=== PATIENT | female | born 1935 | race Caucasian/White ===

== ENCOUNTER 2017-07-23 09:27 | Outpatient (CLI) | payer MEDICARE, OTHER ==
--- NOTE | 2017-07-23 14:52 | CT Report ---
SINUS CT: 07/23/2017 HISTORY: Nasal congestion. TECHNIQUE: Axial noncontrast images of the paranasal sinuses with sagittal and coronal reconstructio ns. COMPARISON: Head CT 04/22/2015. FINDINGS: The frontal and ethmoid sinuses are clear. There is trace membrane thickening in the left sphenoid sinus and bilateral maxillary sinuses. The right sphenoid sinus is clear. The nasal cavit y is unremarkable with an essentially midline nasal septum. The orbital structures are symmetric. N o bone destruction or fracture. IMPRESSION: TRACE MEMBRANE THICKENING BILATERAL MAXILLARY AND LEFT SPHENOID SINUS. OTHERWISE NEGATI VE. In accordance with CT protocol optimization, one or more of the following dose reduction techniques w ere utilized for this exam: automated exposure control, adjustment of mA and/or KV based on patient size, or use of iterative reconstructive technique. JOB #: [id number] EXT JOB #:[id number]
== END 2017-07-23 09:28 | disposition home or self-care (01) ==
LOC: DI 09:27
PROVIDERS: ATTEND Otolaryngology
DX: J32.8 Other chronic sinusitis (principal); J31.0 Chronic rhinitis; R09.81 Nasal congestion
CPT/HCPCS: 70486

== ENCOUNTER 2017-11-29 15:15 | Outpatient (CLI) | payer MEDICARE, OTHER ==
[2017-11-29 15:49] LABS: BASOPHILS # (AUTO) 0.1 10^3/uL (0.0-0.1); BASOPHILS % (AUTO) 1.3 %; EOSINOPHILS # (AUTO) 0.1 10^3/uL (0.0-0.7); EOSINOPHILS % (AUTO) 1.5 %; HGB - HEMOGLOBIN 13.6 g/dL (12.0-16.0); LYMPHOCYTES # (AUTO) 2.2 10^3/uL (1.5-3.5); LYMPHOCYTES % (AUTO) 33.6 %; MEAN CORPUSCULAR HEMOGLOBIN 32.6 pg (27.0-31.0); MEAN CORPUSCULAR VOLUME 96.1 fL (81.0-99.0); MEAN PLATELET VOLUME 8.3 fL (7.9-10.8); MONOCYTES # (AUTO) 0.8 10^3/uL (0.0-1.0); MONOCYTES % (AUTO) 12.6 %; NEUTROPHILS # (AUTO) 3.3 10^3/uL (1.5-6.6); PLT - PLATELET COUNT 253 10^3/uL (130-450); RED BLOOD COUNT 4.18 10^6/uL (4.20-5.40); RED CELL DISTRIBUTION WIDTH 13.8 % (12.0-15.0); WHITE BLOOD COUNT 6.5 x10^3/uL (4.8-10.8)
[2017-11-29 16:02] LABS: ALBUMIN 4.5 g/dL (3.2-5.5); ALBUMIN/GLOBULIN RATIO 1.6 (1.0-2.2); BILIRUBIN,TOTAL 0.8 mg/dL (0.2-1.0); CALCIUM 9.3 mg/dL (8.5-10.3); CREATININE 0.6 mg/dL (0.4-1.0); TOTAL PROTEIN 7.4 g/dL (6.7-8.2)
[2017-11-29 17:07] LABS: HB2 TOTAL 14.9 g/dL; HEMOGLOBIN A1C 0.46 g/dL
== END 2017-11-29 15:16 | disposition home or self-care (01) ==
LOC: LAB 15:15
PROVIDERS: ATTEND Internal Medicine
DX: Z01.812 Encounter for preprocedural laboratory examination (principal); M25.569 Pain in unspecified knee; I10 Essential (primary) hypertension; E78.5 Hyperlipidemia, unspecified; R73.01 Impaired fasting glucose; Z79.899 Other long term (current) drug therapy
CPT/HCPCS: 36415; 80053; 83036; 85025; 87640

== ENCOUNTER 2018-06-30 14:00 | Outpatient (CLI) | payer MEDICARE, OTHER ==
[2018-06-30] MEDS ORDERED: IOPAMIDOL-300 100 ML VIAL ONE (14:05)
[2018-06-30 14:31] LABS: BASOPHILS # (AUTO) 0.1 10^3/uL (0.0-0.1); EOSINOPHILS # (AUTO) 0.1 10^3/uL (0.0-0.7); EOSINOPHILS % (AUTO) 0.9 %; HGB - HEMOGLOBIN 13.2 g/dL (12.0-16.0); LYMPHOCYTES # (AUTO) 1.3 10^3/uL (1.5-3.5); LYMPHOCYTES % (AUTO) 21.3 %; MEAN CORPUSCULAR HEMOGLOBIN 33.1 pg (27.0-31.0); MEAN CORPUSCULAR HGB CONC 33.5 g/dL (32.0-36.0); MEAN CORPUSCULAR VOLUME 98.6 fL (81.0-99.0); MEAN PLATELET VOLUME 8.3 fL (7.9-10.8); MONOCYTES # (AUTO) 0.7 10^3/uL (0.0-1.0); MONOCYTES % (AUTO) 11.4 %; NEUTROPHILS % (AUTO) 65.4 %; PLT - PLATELET COUNT 275 10^3/uL (130-450); RED BLOOD COUNT 3.99 10^6/uL (4.20-5.40); RED CELL DISTRIBUTION WIDTH 14.9 % (12.0-15.0); WHITE BLOOD COUNT 6.1 x10^3/uL (4.8-10.8)
[2018-06-30 14:39] LABS: CALCIUM 9.4 mg/dL (8.5-10.3); CREATININE 0.7 mg/dL (0.4-1.0)
[2018-06-30] MEDS ORDERED: IOPAMIDOL-300 100 ML VIAL IVP ONE (15:19)
--- NOTE | 2018-06-30 15:44 | CT Report ---
Reason: DYSPNEA Procedure Date: 06/30/2018 Accession Number: [id number] / [id number] Procedure: CT - Chest Angio (PE) CPT Code: FULL RESULT: EXAM: CT ANGIOGRAM CHEST EXAM DATE: 06/30/2018 03:17 PM. CLINICAL HISTORY: Dyspnea. COMPARISON: None. TECHNIQUE: Routine helical imaging was performed through the chest in the pulmonary arterial phase. IV Contrast: ISOVUE 300 80mL. Reconstructions: Coronal 3-D MIP reconstructions.Sagittal and coronal. In accordance with CT protocol optimization, one or more of the following dose reduction techniques were utilized for this exam: automated exposure control, adjustment of mA and/or KV based on patient size, or use of iterative reconstructive technique. FINDINGS: Mediastinum: No evidence for pulmonary emboli. Mild breathing motion artifact limited. 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 Aneurysmal dilatation of the ascending thoracic aorta measuring 4.1 cm. Cardiomegaly. Coronary artery calcification. No mediastinal or hilar lymphadenopathy seen. There is reflux of contrast into the hepatic veins. No acute findings are seen in the upper abdomen. Small hiatal hernia. Lungs: Moderate right and small left pleural effusions. Small to moderate bilateral lower lobe lung consolidations, left greater than right. Small left upper lobe lingular consolidation. Mild diffuse hazy opacifications in the lungs, could represent mild pulmonary edema. Areas of mild interlobular septal thickening. Mild breathing motion artifact limited. No acute bone findings. IMPRESSION: 1. No evidence for pulmonary emboli. Mild motion artifact limited. 2. 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 Aneurysmal dilatation of the ascending thoracic aorta measuring 4.1 cm. Cardiomegaly. See above. 3. Moderate right and small left pleural effusions. Small to moderate bilateral lower lobe lung consolidations, left greater than right. Small left upper lobe lingular consolidation. Mild diffuse hazy opacifications in the lungs, could represent mild pulmonary edema. Areas of mild interlobular septal thickening. Mild breathing motion artifact limited. RADIA
== END 2018-06-30 14:01 | disposition home or self-care (01) ==
LOC: DI 14:00
PROVIDERS: ATTEND Internal Medicine
DX: I50.9 Heart failure, unspecified (principal); J90 Pleural effusion, not elsewhere classified; I71.4 Abdominal aortic aneurysm, without rupture; Z79.899 Other long term (current) drug therapy
CPT/HCPCS: 36415; 71275; 80048; 83880; 84443; 85025; Q9967

== ENCOUNTER 2018-07-04 11:11 | Outpatient (CLI) | payer MEDICARE, OTHER | END 2018-07-04 11:12 | disposition home or self-care (01) | LOC: DI 11:11 | PROVIDERS: ATTEND Internal Medicine | DX: I50.9 Heart failure, unspecified (principal); I07.1 Rheumatic tricuspid insufficiency ==

== ENCOUNTER 2018-08-08 01:10 | Emergency (ER) | payer MEDICARE, OTHER ==
[2018-08-08 01:38] LABS: BASOPHILS # (AUTO) 0.1 10^3/uL (0.0-0.1); BASOPHILS % (AUTO) 1.2 %; EOSINOPHILS # (AUTO) 0.1 10^3/uL (0.0-0.7); EOSINOPHILS % (AUTO) 1.7 %; HGB - HEMOGLOBIN 14.7 g/dL (12.0-16.0); LYMPHOCYTES # (AUTO) 2.6 10^3/uL (1.5-3.5); LYMPHOCYTES % (AUTO) 33.9 %; MEAN CORPUSCULAR HEMOGLOBIN 32.6 pg (27.0-31.0); MEAN CORPUSCULAR HGB CONC 33.7 g/dL (32.0-36.0); MEAN CORPUSCULAR VOLUME 96.9 fL (81.0-99.0); MONOCYTES # (AUTO) 0.8 10^3/uL (0.0-1.0); MONOCYTES % (AUTO) 11.1 %; NEUTROPHILS % (AUTO) 52.1 %; PLT - PLATELET COUNT 303 10^3/uL (130-450); RED BLOOD COUNT 4.51 10^6/uL (4.20-5.40); RED CELL DISTRIBUTION WIDTH 13.9 % (12.0-15.0); WHITE BLOOD COUNT 7.7 x10^3/uL (4.8-10.8)
[2018-08-08] MEDS ORDERED: FUROSEMIDE 40 MG/4 ML VIAL IVP STA (01:38)
[2018-08-08] MEDS ORDERED: NITROGLYCERIN 2% PASTE TOP STA ×2 (01:40→03:45)
--- NOTE | 2018-08-08 01:43 | XRAY Report ---
Reason: short of breath Procedure Date: 08/08/2018 Accession Number: [id number] / [id number] Procedure: XR - Chest 1 View X-Ray CPT Code: 41221 FULL RESULT: EXAM: CHEST RADIOGRAPHY EXAM DATE: 08/08/2018 01:22 AM. CLINICAL HISTORY: Short of breath. COMPARISON: CHEST ANGIO 06/30/2018 3:12 PM. TECHNIQUE: 1 view. FINDINGS: Lungs/Pleura: Diffuse mild interstitial opacities. Small effusions. No gross pneumothorax. Mediastinum: Mild cardiomegaly. No mediastinal shift. Other: None. IMPRESSION: Mild CHF. RADIA
[2018-08-08 01:47] LABS: ALBUMIN 4.2 g/dL (3.2-5.5); ALBUMIN/GLOBULIN RATIO 1.3 (1.0-2.2); BILIRUBIN,TOTAL 1.1 mg/dL (0.2-1.0); CALCIUM 9.2 mg/dL (8.5-10.3); CREATININE 0.8 mg/dL (0.4-1.0); MAGNESIUM 2.1 mg/dL (1.7-2.8); TOTAL PROTEIN 7.5 g/dL (6.7-8.2)
--- NOTE | 2018-08-08 01:55 | ED Physician Documentation ---
PD HPI DYSPNEA - Stated complaint Stated Complaint: DIFF BREATHING,CHEST PX - Chief complaint Chief Complaint: Cardiac - History obtained from History obtained from: Patient, Family - History of Present Illness Timing - onset: Today, Chronic Timing - onset during: Rest, Light activity, Exertion Worsened by: Exertion, Laying flat Associated symptoms: No: Fever, Cough Similar symptoms before: Work up / diagnostics, Treatment Recently seen: Clinic - Additional information Additional information: Patient is 83 year old female who was recently diagnosed with chf, ef about 35- 40 percent. Patient has had worsening shortness of breath over the last two weeks. patient saw her pmd who increased her diuretic dose. Patient states that she had been on metoprolol but recently lessened her dose due to hypotension. Patient states that tonight she was having her continual shortness of breath but also developed chest pain. Review of Systems Constitutional: denies: Fever, Chills Throat: denies: Dental pain / toothache Cardiac: reports: Chest pain / pressure, Pedal edema. denies: Palpitations Respiratory: reports: Dyspnea. denies: Wheezing GI: reports: Nausea. 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 Musculoskeletal: Osteoarthritis - Past Surgical History Past Surgical History: Yes General: Appendectomy /EXPERIMENTAL MECHANIC SPACECRAFT: section - Present Medications Home Medications: Ambulatory Orders Medication Instructions Recorded Confirmed Furosemide [Lasix] 10 mg PO DAILY 08/08/18 - Allergies Allergies/Adverse Reactions: Allergies Allergy/AdvReac Type Severity Reaction Status Date / Time No Known Drug Allergies Allergy Verified 08/08/18 01:20 - Social History Does the pt smoke?: No Smoking Status: Never smoker Does the pt drink ETOH?: Yes ETOH Use: Wine Does the pt have substance abuse?: No - Immunizations Immunizations are current?: No Immunizations: TDAP >10years/unknown - POLST Patient has POLST: No PD ED PE NORMAL - Vitals Vital signs reviewed: Yes - General General: Alert and oriented X 3 - HEENT HEENT: Atraumatic, PERRL - Abdomen Abdomen: Soft - Derm Derm: Normal color PD ED PE EXPANDED - General General: Alert - Cardiac Cardiac: Irregularly irregular - Respiratory Respiratory: Labored, Accessory mm use, Decreased breath sounds, Right lower lobe, Left lower lobe - Extremities Extremities: Pedal edema bilateral (plus 1, right greater than left) Results - Vitals Vitals: Vital Signs - 24 hr 08/08/18 08/08/18 08/08/18 01:14 01:22 01:47 Temperature 36.1 C L Heart Rate 111 H 92 Respiratory 20 22 Rate Blood Pressure 130/100 H 132/74 H Blood Pressure 139/103 H [Left] Blood Pressure 132/74 H [Right] O2 Saturation 97 92 Oxygen O2 Source Nasal cannula - EKG (time done) 0116 Rhythm: NSR [place]: Normal, Anterior hemiblock Intervals: LBBB Other comments: Other comments (irregular morphology with pvcs) Compare to prior EKG: Old EKG unavailable Computer interpretation: Disagree with computer 0210 Rate: Rate (enter#) (98) Rhythm: NSR [place]: Normal Intervals: LBBB Compare to prior EKG: Changed from prior EKG Computer interpretation: Agree with computer - Labs Labs: Laboratory Tests 08/08/18 08/08/18 08/08/18 01:25 01:25 01:25 WBC 7.7 RBC 4.51 Hgb 14.7 Hct 43.7 MCV 96.9 MCH 32.6 H MCHC 33.7 RDW 13.9 Plt Count 303 MPV 9.0 Neut # (Auto) 4.0 Lymph # (Auto) 2.6 [place] # (Auto) 0.8 Eos # (Auto) 0.1 Baso # (Auto) 0.1 Absolute Nucleated RBC 0.00 Nucleated RBC % 0.1 Sodium 139 Potassium 3.3 L Chloride 101 Carbon Dioxide 27 Anion Gap 11.0 BUN 25 H Creatinine 0.8 Estimated GFR (MDRD) 69 L Glucose 166 H Calcium 9.2 Phosphorus 4.0 Magnesium 2.1 Total Bilirubin 1.1 H AST 41 ALT 61 H Alkaline Phosphatase 86 Troponin I 0.22 Total Protein 7.5 Albumin 4.2 Globulin 3.3 Albumin/Globulin Ratio 1.3 Lipase 29 - Rads (name of study) chest x-ray Radiology: Final report received (mild chf patter) PD MEDICAL DECISION MAKING - ED course Complexity details: reviewed old records, reviewed results, re-evaluated patient, considered differential, d/w patient, d/w diet consultant ED course: Patient was seen and examined at bedside. IV access was gained and labs were drawn. ekg was performed and it seemed to be sinus with multiple pvcs, but it was abnormal morphology. there was no ekg for comparison. chest x-ray was ordered and patient was treated with nitro and 40mg of lasix. Patient's htn improved as did her symptoms. While patient was on the monitor she had multiple runs of unsustained v-tach and patient developed chest pain. patient was treated with aspirin. Repeat troponin was trending down 0.22 to 0.19. Case was discussed with patient's coke oven mason, Dr. Peter who recommended metoprolol and stated that the patient needed to be diuresed. Case was discussed with the hospitalist but while patient was being evaluated patient developed increased chest pain. A third troponin was performed and was increasing to 0.3 as was her pain. patient was treated with morphine. There were no beds at [facility], home of the patient's coke oven mason so [facility] was contacted and the case was discussed with Dr. Choi, coke oven mason who recommended IV metoprolol and transfer. Case was discussed with [facility] hospitalist, Dr. Christian who accepted the patient. Arrangements were made for transfer and patient was tra nsferred in stable condition. - Sepsis Event Vital Signs: Vital Signs - 24 hr 08/08/18 08/08/18 08/08/18 01:14 01:22 01:47 Temperature 36.1 C L Heart Rate 111 H 92 Respiratory 20 22 Rate Blood Pressure 130/100 H 132/74 H Blood Pressure 139/103 H [Left] Blood Pressure 132/74 H [Right] O2 Saturation 97 92 Oxygen O2 Source Nasal cannula Departure - Departure Disposition: 02 Transfer Acute Care Hosp Clinical Impression: Congestive heart failure Condition: Stable
[2018-08-08] MEDS ORDERED: ASPIRIN CHEW 81 MG TABLET PO STA (02:01)
[2018-08-08] MEDS ORDERED: ONDANSETRON 4 MG/2 ML VIAL IVP STA (02:07)
[2018-08-08] MEDS ORDERED: METOPROLOL TARTRATE 50 MG TABLET PO STA (03:17)
[2018-08-08] MEDS ORDERED: ACETAMINOPHEN 500 MG TABLET PO STA (04:15)
[2018-08-08] MEDS ORDERED: MORPHINE 2 MG/ML CARPUJECT IVP STA (04:16)
[2018-08-08] MEDS ORDERED: METOPROLOL 5 MG/5 ML VIAL IVP STA (05:15)
[2018-08-08 05:51] VITALS: BP 115/78
== END 2018-08-08 06:15 | disposition short-term general hospital (02) ==
LOC: ED 01:10
DX: I44.7 Left bundle-branch block, unspecified (principal); I50.9 Heart failure, unspecified; I49.3 Ventricular premature depolarization
CPT/HCPCS: 71045; 80053; 83690; 83735; 83880; 84100; 84484; 85025; 93005; 96374; 96375; 99284; 99285; A9270; 36415

== ENCOUNTER 2018-08-08 06:13 | Outpatient (CLI) | payer MEDICARE, OTHER | END 2018-08-08 06:14 | disposition short-term general hospital (02) | LOC: EMS 06:13 | PROVIDERS: ATTEND Surgery | DX: R07.9 Chest pain, unspecified (principal); R06.02 Shortness of breath | CPT/HCPCS: A0425; A0428 ==

== ENCOUNTER 2018-12-23 08:47 | Outpatient (CLI) | payer MEDICARE, OTHER ==
[2018-12-23 09:02] LABS: BASOPHILS # (AUTO) 0.1 10^3/uL (0.0-0.1); BASOPHILS % (AUTO) 0.9 %; EOSINOPHILS # (AUTO) 0.2 10^3/uL (0.0-0.7); EOSINOPHILS % (AUTO) 2.9 %; HGB - HEMOGLOBIN 12.9 g/dL (12.0-16.0); LYMPHOCYTES # (AUTO) 2.3 10^3/uL (1.5-3.5); LYMPHOCYTES % (AUTO) 39.7 %; MEAN CORPUSCULAR HEMOGLOBIN 33.1 pg (27.0-31.0); MEAN CORPUSCULAR HGB CONC 33.9 g/dL (32.0-36.0); MEAN CORPUSCULAR VOLUME 97.6 fL (81.0-99.0); MEAN PLATELET VOLUME 7.9 fL (7.9-10.8); MONOCYTES # (AUTO) 0.8 10^3/uL (0.0-1.0); MONOCYTES % (AUTO) 13.4 %; NEUTROPHILS # (AUTO) 2.5 10^3/uL (1.5-6.6); NEUTROPHILS % (AUTO) 43.1 %; PLT - PLATELET COUNT 290 10^3/uL (130-450); RED BLOOD COUNT 3.89 10^6/uL (4.20-5.40); RED CELL DISTRIBUTION WIDTH 13.6 % (12.0-15.0); WHITE BLOOD COUNT 5.7 x10^3/uL (4.8-10.8)
[2018-12-23 09:21] LABS: BUN - BLOOD UREA NITROGEN 24 mg/dL (6-20); CALCIUM 9.1 mg/dL (8.5-10.3); CARBON DIOXIDE - CO2 27 mmol/L (21-32); CHLORIDE 97 mmol/L (101-111); CHOL/HDL RATIO 3.3 (<4.4); CHOLESTEROL 223 mg/dL; CREATININE 0.8 mg/dL (0.4-1.0); GFR - MDRD 69 (>89); GLUCOSE 100 mg/dL (70-100); HDL CHOLESTEROL 67 mg/dL; LDL CHOLESTEROL,CALCULATED 141 mg/dL; LDL/HDL RATIO 2.1 (<4.4); SODIUM 133 mmol/L (135-145); VLDL CHOLESTEROL 15 mg/dL
== END 2018-12-23 08:48 | disposition home or self-care (01) ==
LOC: LAB 08:47
PROVIDERS: ATTEND Internal Medicine Cardiovascular Disease
DX: I10 Essential (primary) hypertension (principal); E78.5 Hyperlipidemia, unspecified
CPT/HCPCS: 36415; 80048; 80061; 83721; 85025

== ENCOUNTER 2019-11-10 13:49 | Outpatient (CLI) | payer MEDICARE, OTHER ==
--- NOTE | 2019-11-11 09:54 | DEXA Report ---
Reason: POSTMENOPAUSAL Procedure Date: 11/10/2019 Accession Number: [id number] / [id number] Procedure: DEX - Dexa Spine and/or Hip CPT Code: Final Report FULL RESULT: EXAM: Dexa Spine and/or Hip DATE: 11/10/2019 2:41 PM CLINICAL HISTORY: POSTMENOPAUSAL TECHNIQUE: Dual energy x-ray absorptiometry (DXA) was performed on a OmniGuide System. Regions measured are the AP Spine, femoral neck, and if needed forearm. COMPARISON: None. In accordance with the International Society for Clinical Densitometry (ISCD) guidelines, data from previous exams may be reanalyzed using current recommendations and techniques. This is done to allow a more accurate basis for comparison with the current study. FINDINGS: The data for the lumbar spine is as follows: BMD (g/cm/cm) T-SCORE Z-SCORE REGION L1 0.934 -1.6 0.1 L2 1.151 -0.4 1.3 L3 1.224 0.2 2.0 L4 1.148 -0.4 1.3 TOTAL 1.122 -0.5 1.3 NOTE: All evaluable vertebrae are used for classification The data for the hip is as follows: BMD (g/cm/cm) T-SCORE Z-SCORE REGION Neck 0.630 -2.9 -0.8 TOTAL 0.573 -3.4 -1.4 NOTE: The femoral neck or total proximal femur, whichever is lowest, is used for classification. IMPRESSION: THE WHO CLASSIFICATION BASED ON THE INTERNATIONAL REFERENCE STANDARD IS OSTEOPOROSIS. THE FRACTURE RISK IS HIGH. RECOMMENDATION: Patients with diagnosis of osteoporosis or osteopenia should have regular bone mineral density assessment. For those eligible for Medicare, routine testing is allowed once every 2 years. Testing frequency can be increased for patients who have rapidly progressing disease or for those who are receiving medical therapy to restore bone mass. COMMENT: World Health Organization (WHO) definitions for osteoporosis and osteopenia: NORMAL BMD: T-score at -1.0 or higher, fracture risk is low OSTEOPENIA BMD: T-score between -1.0 and -2.5, fracture risk is increased. OSTEOPOROSIS BMD: T-score at -2.5 or lower, fracture risk is high. National Osteoporosis Foundation recommends: 1. Obtain adequate dietary calcium (at least 1200 mg per day) and vitamin D (400-800 international units per day). 2. Participate, as appropriate, in regular weightbearing and muscle-strengthening exercise. 3. Avoid tobacco use and reduce alcohol and caffeine intake. 4. For more detailed information see the website at www.NOF.org.
== END 2019-11-10 13:50 | disposition home or self-care (01) ==
LOC: DI 13:49
PROVIDERS: ATTEND Internal Medicine
DX: Z13.820 Encounter for screening for osteoporosis (principal); M81.0 Age-related osteoporosis without current pathological fracture; Z78.0 Asymptomatic menopausal state
CPT/HCPCS: 77080

== ENCOUNTER 2019-11-16 10:09 | Outpatient (CLI) | payer MEDICARE, OTHER ==
[2019-11-16 10:40] LABS: BASOPHILS # (AUTO) 0.1 10^3/uL (0.0-0.1); BASOPHILS % (AUTO) 1.1 %; EOSINOPHILS # (AUTO) 0.1 10^3/uL (0.0-0.7); EOSINOPHILS % (AUTO) 2.4 %; LYMPHOCYTES % (AUTO) 18.5 %; MEAN CORPUSCULAR HEMOGLOBIN 32.3 pg (27.0-31.0); MEAN CORPUSCULAR HGB CONC 32.3 g/dL (32.0-36.0); MEAN PLATELET VOLUME 9.9 fL (7.9-10.8); MONOCYTES # (AUTO) 0.9 10^3/uL (0.0-1.0); MONOCYTES % (AUTO) 17.1 %; NEUTROPHILS # (AUTO) 3.3 10^3/uL (1.5-6.6); NEUTROPHILS % (AUTO) 60.7 %; PLT - PLATELET COUNT 329 10^3/uL (130-450); RED BLOOD COUNT 4.03 10^6/uL (4.20-5.40); RED CELL DISTRIBUTION WIDTH 14.4 % (12.0-15.0); WHITE BLOOD COUNT 5.5 x10^3/uL (4.8-10.8)
[2019-11-16 11:04] LABS: CHOL/HDL RATIO 2.7 (<4.4); CHOLESTEROL 187 mg/dL; HDL CHOLESTEROL 70 mg/dL; LDL CHOLESTEROL,CALCULATED 97 mg/dL; LDL/HDL RATIO 1.4 (<4.4); VLDL CHOLESTEROL 20 mg/dL
== END 2019-11-16 10:10 | disposition home or self-care (01) ==
LOC: LAB 10:09
PROVIDERS: ATTEND Internal Medicine Cardiovascular Disease
DX: E78.5 Hyperlipidemia, unspecified (principal); I50.22 Chronic systolic (congestive) heart failure
CPT/HCPCS: 36415; 80061; 83721; 85025

== ENCOUNTER 2019-11-20 06:13 | Emergency (ER) | payer MEDICARE, OTHER ==
[2019-11-20] MEDS ORDERED: IPRATROPIUM/ALBUTEROL 3 ML NEB INH STA (06:44)
[2019-11-20] MEDS ORDERED: CHERRY SYRUP 10 ML UDC PO ONE (07:35)
[2019-11-20] MEDS ORDERED: DEXAMETHASONE 10 MG/ML VIAL PO STA (07:35)
--- NOTE | 2019-11-20 07:39 | ED Physician Documentation ---
PD HPI URI - Stated complaint Stated Complaint: COUGH/SOA - Chief complaint Chief Complaint: Resp - History obtained from History obtained from: Patient, Family - History of Present Illness Timing - onset: How many days ago (5) Timing duration: Days (5) Timing details: Gradual onset, Still present Associated symptoms: Nasal congestion, Rhinorrhea, Dry cough. No: Fever, Sore throat Contributing factors: Sick contact ( sick with similar has improved) Improves by: Rest, Medication Worsened by: Activity Similar symptoms before: Diagnosis (bronchitis/ CHF) Recently seen: Surgery (total knee 2 months ago.) - Additional information Additional information: 84-year-old female with a history of congestive heart failure has had knee replacement done 2 months ago and is improving from that and she has developed a cough and congestion over the past 5 days she does have some nasal quality to her voice. She states that she does not feel like she is in congestive heart failure and she has been given a DuoNeb treatment prior to my arrival in the room which she states did not really help all that much. She denies any swelling to her lower extremities denies any fever denies any production of sputum. She has been in to see her primary care doctor within the last 2 weeks and follow-up from her knee surgery. Review of Systems Constitutional: denies: Fever Eyes: denies: Decreased vision Ears: denies: Ear pain Nose: reports: Rhinorrhea / runny nose, Congestion. denies: Sinus pressure / pain Throat: denies: Sore throat Cardiac: denies: Chest pain / pressure, Palpitations Respiratory: reports: Cough. 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 Musculoskeletal: Osteoarthritis - Past Surgical History Past Surgical History: Yes General: Appendectomy Ortho: Knee replacement /ENTRY ENGINEER: section - Present Medications Home Medications: Ambulatory Orders Medication Instructions Recorded Confirmed Furosemide [Lasix] 10 mg PO DAILY 08/08/18 11/20/19 Alendronate [Fosamax] 70 mg PO OAW 11/20/19 11/20/19 Amox/Clav 875/125 [Augmentin] 1 each PO Q12H #20 tablet 11/20/19 Atorvastatin Calcium 10 mg PO DAILY PM 11/20/19 11/20/19 Clopidogrel Bisulfate [Clopidogrel] 75 mg PO DAILY 11/20/19 11/20/19 Spironolactone 25 mg PO DAILY 11/20/19 11/20/19 carvediloL [Carvedilol] 6.25 mg PO TID 11/20/19 11/20/19 - Allergies Allergies/Adverse Reactions: Allergies Allergy/AdvReac Type Severity Reaction Status Date / Time No Known Drug Allergies Allergy Verified 11/20/19 06:25 - Social History Does the pt smoke?: No Smoking Status: Never smoker Does the pt drink ETOH?: Yes Does the pt have substance abuse?: No - Immunizations Immunizations are current?: No Immunizations: TDAP >10years/unknown - POLST Patient has POLST: No PD ED PE NORMAL - Vitals Vital signs reviewed: Yes (tachy and hypertensive) - General General: Alert and oriented X 3, No acute distress, Well developed/nourished - HEENT HEENT: Atraumatic, PERRL, EOMI, Pharynx benign, Other (The left TM is inflamed with rounding of the umbo. The right is occluded by cerumen. mucous membranes are dry.) - Neck Neck: Supple, no meningeal sign, No bony TTP - Cardiac Cardiac: No murmur, Other (tachy to 100) - Respiratory Respiratory: Other (course transmitted breath sounds with rhonchi in the right base.) - Abdomen Abdomen: Soft, Non tender - Back Back: No CVA TTP, No spinal TTP - Derm Derm: Normal color, Warm and dry, No rash - Extremities Extremities: No deformity, No edema, No calf tenderness / cord - Neuro Neuro: welder and fitter 2-12 intact, No motor deficit, No sensory deficit, Normal speech Eye Opening: Spontaneous Motor: Obeys Commands Verbal: Oriented GCS Score: 15 - Psych Psych: Normal mood, Normal affect Results - Vitals Vitals: Vital Signs - 24 hr 11/20/19 11/20/19 11/20/19 06:22 06:51 06:57 Temperature 36.7 C Heart Rate 106 H 96 86 Respiratory 18 18 20 Rate Blood Pressure 136/70 H 136/80 H O2 Saturation 93 93 11/20/19 07:03 Temperature Heart Rate 92 Respiratory 16 Rate Blood Pressure 144/83 H O2 Saturation 97 Oxygen O2 Source Room air - Rads (name of study) chest Radiology: EMP read contemporaneously (NAD) Procedures - IVC sono (time) 0730 Bedside IVC sono: IVC measures (cm) (1.10), IVC collapsed c insp (cm) (complete), Dehydration (est 1 liter deficit) PD MEDICAL DECISION MAKING - ED course Complexity details: considered differential, d/w patient, d/w family ED course: 84-year-old female with a history of congestive heart failure is into the emergency department with a cough and congestion and does not appear to have any evidence of congestive failure she is a bit dry on interrogation the inferior vena cava. She does have evidence of otitis on examination. She has some rhonchi on her chest and some fine wheezes which she did not think was improved by the use of the DuoNeb treatment. An x-ray of her chest is obtained and she is administered dexamethasone. Departure - Departure Disposition: 01 Home, Self Care Clinical Impression: Dehydration Otitis media Qualifiers: Otitis media type: suppurative Chronicity: acute Laterality: left Recurrence: non-recurrent Spontaneous tympanic membrane rupture: without spontaneous rupture Qualified Code(s): H66.002 - Acute suppurative otitis media without spontaneous rupture of ear drum, left ear Condition: Stable Instructions: ED Otitis Media Acute Adult, ED Dehydration Follow-Up: Nelida Ross MD [Primary Care Provider] - Prescriptions: Amox/Clav 875/125 [Augmentin] 1 each PO Q12H #20 tablet Comments: Today it appears you have an infection in your left middle ear causing your cough and we have prescribed some antibiotic for this as well as a decongestant dose of a steroid. You were found to be dehydrated today in the emergency department and we recommend you increase your fluids and hold your dose of Spironolactone for 1 day.
--- NOTE | 2019-11-20 08:11 | XRAY Report ---
Reason: cough R base rhonchi Procedure Date: 11/20/2019 Accession Number: [id number] / [id number] Procedure: XR - Chest 2 View X-Ray CPT Code: 05968 Final Report FULL RESULT: EXAM: CHEST RADIOGRAPHY EXAM DATE: 11/20/2019 07:47 AM. CLINICAL HISTORY: Cough R base rhonchi. COMPARISON: CHEST 1 VIEW 08/08/2018 1:22 AM CHEST ANGIO 06/30/2018 3:12 PM. TECHNIQUE: 2 views. FINDINGS: Lungs/Pleura: No focal opacities. Increased lung markings. No effusion Mediastinum: Stable Other: None. IMPRESSION: Possible airways disease. No consolidation RADIA
[2019-11-20 08:12] VITALS: BP 151/83
== END 2019-11-20 08:19 | disposition home or self-care (01) ==
LOC: ED 06:13
DX: H66.002 Acute suppurative otitis media without spontaneous rupture of ear drum, left ear (principal); E86.0 Dehydration; H61.21 Impacted cerumen, right ear; R05 Cough; R06.2 Wheezing; I11.0 Hypertensive heart disease with heart failure; I50.9 Heart failure, unspecified; Z96.659 Presence of unspecified artificial knee joint
CPT/HCPCS: 71046; 93005; 94640; 99283; 99284; A9270

== ENCOUNTER 2020-01-18 08:53 | Outpatient (CLI) | payer MEDICARE, OTHER ==
[2020-01-18 09:20] LABS: BASOPHILS # (AUTO) 0.1 10^3/uL (0.0-0.1); BASOPHILS % (AUTO) 0.9 %; EOSINOPHILS # (AUTO) 0.1 10^3/uL (0.0-0.7); EOSINOPHILS % (AUTO) 2.3 %; HGB - HEMOGLOBIN 13.7 g/dL (12.0-16.0); LYMPHOCYTES % (AUTO) 36.1 %; MEAN CORPUSCULAR HEMOGLOBIN 32.3 pg (27.0-31.0); MEAN CORPUSCULAR HGB CONC 32.9 g/dL (32.0-36.0); MEAN CORPUSCULAR VOLUME 98.3 fL (81.0-99.0); MONOCYTES # (AUTO) 0.9 10^3/uL (0.0-1.0); MONOCYTES % (AUTO) 15.5 %; NEUTROPHILS # (AUTO) 2.5 10^3/uL (1.5-6.6); PLT - PLATELET COUNT 289 10^3/uL (130-450); RED BLOOD COUNT 4.24 10^6/uL (4.20-5.40); RED CELL DISTRIBUTION WIDTH 14.2 % (12.0-15.0); WHITE BLOOD COUNT 5.6 x10^3/uL (4.8-10.8)
[2020-01-18 09:35] LABS: HEMOGLOBIN A1C 0.5 g/dL; HEMOGLOBIN A1C % 5.4 % (4.6-6.2)
[2020-01-18 09:39] LABS: ALBUMIN 4.3 g/dL (3.2-5.5); ALBUMIN/GLOBULIN RATIO 1.3 (1.0-2.2); ALKALINE PHOSPHATASE 59 IU/L (42-121); ALT ALANINE AMINOTRANSFERASE 27 IU/L (10-60); AST ASPARTATE AMINOTRANSFERASE 30 IU/L (10-42); BILIRUBIN,TOTAL 0.7 mg/dL (0.2-1.0); BUN - BLOOD UREA NITROGEN 20 mg/dL (6-20); CALCIUM 9.5 mg/dL (8.5-10.3); CARBON DIOXIDE - CO2 25 mmol/L (21-32); CHLORIDE 102 mmol/L (101-111); CHOL/HDL RATIO 2.6 (<4.4); CHOLESTEROL 192 mg/dL; CREATININE 0.7 mg/dL (0.4-1.0); GFR - MDRD 80 (>89); GLUCOSE 105 mg/dL (70-100); HDL CHOLESTEROL 73 mg/dL; LDL CHOLESTEROL,CALCULATED 103 mg/dL; LDL/HDL RATIO 1.4 (<4.4); SODIUM 138 mmol/L (135-145); TOTAL PROTEIN 7.5 g/dL (6.7-8.2); VLDL CHOLESTEROL 16 mg/dL
== END 2020-01-18 08:54 | disposition home or self-care (01) ==
LOC: LAB 08:53
PROVIDERS: ATTEND Internal Medicine
DX: E78.5 Hyperlipidemia, unspecified (principal); Z79.899 Other long term (current) drug therapy; R73.01 Impaired fasting glucose; M81.0 Age-related osteoporosis without current pathological fracture; Z13.6 Encounter for screening for cardiovascular disorders; I50.9 Heart failure, unspecified; I25.10 Atherosclerotic heart disease of native coronary artery without angina pectoris; K58.9 Irritable bowel syndrome, unspecified; I63.9 Cerebral infarction, unspecified; F41.9 Anxiety disorder, unspecified; C44.91 Basal cell carcinoma of skin, unspecified
CPT/HCPCS: 36415; 80053; 80061; 82306; 83036; 83721; 84443; 85025

== ENCOUNTER 2020-11-25 08:00 | Outpatient (CLI) | payer MEDICARE, OTHER ==
[2020-11-25 10:50] LABS: BASOPHILS # (AUTO) 0.1 10^3/uL (0.0-0.1); EOSINOPHILS # (AUTO) 0.2 10^3/uL (0.0-0.7); EOSINOPHILS % (AUTO) 3.5 %; HGB - HEMOGLOBIN 12.8 g/dL (12.0-16.0); LYMPHOCYTES # (AUTO) 2.3 10^3/uL (1.5-3.5); LYMPHOCYTES % (AUTO) 35.9 %; MEAN CORPUSCULAR HEMOGLOBIN 32.4 pg (27.0-31.0); MEAN CORPUSCULAR HGB CONC 31.8 g/dL (32.0-36.0); MEAN CORPUSCULAR VOLUME 101.8 fL (81.0-99.0); MEAN PLATELET VOLUME 10.1 fL (7.9-10.8); MONOCYTES % (AUTO) 15.2 %; NEUTROPHILS # (AUTO) 2.8 10^3/uL (1.5-6.6); NEUTROPHILS % (AUTO) 44.1 %; PLT - PLATELET COUNT 300 10^3/uL (130-450); RED BLOOD COUNT 3.95 10^6/uL (4.20-5.40); RED CELL DISTRIBUTION WIDTH 13.2 % (12.0-15.0); WHITE BLOOD COUNT 6.3 x10^3/uL (4.8-10.8)
[2020-11-25 11:11] LABS: BUN - BLOOD UREA NITROGEN 16 mg/dL (6-20); CALCIUM 9.4 mg/dL (8.5-10.3); CARBON DIOXIDE - CO2 25 mmol/L (21-32); CHLORIDE 106 mmol/L (101-111); CHOL/HDL RATIO 2.7 (<4.4); CHOLESTEROL 177 mg/dL; CREATININE 0.8 mg/dL (0.4-1.0); GLUCOSE 107 mg/dL (70-100); HDL CHOLESTEROL 66 mg/dL; LDL CHOLESTEROL,CALCULATED 97 mg/dL; LDL/HDL RATIO 1.5 (<4.4); VLDL CHOLESTEROL 14 mg/dL
== END 2020-11-25 23:59 | disposition home or self-care (01) ==
LOC: LAB 08:00
PROVIDERS: ATTEND Internal Medicine Cardiovascular Disease
DX: E78.5 Hyperlipidemia, unspecified (principal); I50.22 Chronic systolic (congestive) heart failure
CPT/HCPCS: 36415; 80048; 80061; 83721; 85025

== ENCOUNTER 2021-05-04 11:54 | Outpatient (CLI) | payer MEDICARE, OTHER ==
[2021-05-04 12:20] LABS: CREATININE 0.7 mg/dL (0.4-1.0); POTASSIUM 4.5 mmol/L (3.5-5.0)
== END 2021-05-04 11:55 | disposition home or self-care (01) ==
LOC: LAB 11:54
PROVIDERS: ATTEND Internal Medicine Cardiovascular Disease
DX: I50.22 Chronic systolic (congestive) heart failure (principal)
CPT/HCPCS: 36415; 80048

== ENCOUNTER 2022-01-09 10:10 | Outpatient (CLI) | payer MEDICARE, OTHER ==
[2022-01-09 10:22] LABS: BASOPHILS # (AUTO) 0.1 10^3/uL (0.0-0.1); BASOPHILS % (AUTO) 1.2 %; EOSINOPHILS # (AUTO) 0.2 10^3/uL (0.0-0.7); EOSINOPHILS % (AUTO) 3.3 %; HCT - HEMATOCRIT 37.6 % (37.0-47.0); HGB - HEMOGLOBIN 12.1 g/dL (12.0-16.0); LYMPHOCYTES # (AUTO) 2.2 10^3/uL (1.5-3.5); LYMPHOCYTES % (AUTO) 31.9 %; MEAN CORPUSCULAR HGB CONC 32.2 g/dL (32.0-36.0); MEAN CORPUSCULAR VOLUME 93.3 fL (81.0-99.0); MEAN PLATELET VOLUME 9.7 fL (7.9-10.8); MONOCYTES % (AUTO) 13.8 %; NEUTROPHILS # (AUTO) 3.4 10^3/uL (1.5-6.6); NEUTROPHILS % (AUTO) 49.5 %; PLT - PLATELET COUNT 330 10^3/uL (130-450); RED BLOOD COUNT 4.03 10^6/uL (4.20-5.40); RED CELL DISTRIBUTION WIDTH 16.3 % (12.0-15.0); WHITE BLOOD COUNT 6.9 x10^3/uL (4.8-10.8)
[2022-01-09 10:43] LABS: BUN - BLOOD UREA NITROGEN 17 mg/dL (6-20); CALCIUM 9.2 mg/dL (8.5-10.3); CARBON DIOXIDE - CO2 25 mmol/L (21-32); CHLORIDE 103 mmol/L (101-111); CHOL/HDL RATIO 2.2 (<4.4); CHOLESTEROL 146 mg/dL; CREATININE 0.7 mg/dL (0.4-1.0); GFR - MDRD 80 (>89); GLUCOSE 103 mg/dL (70-100); HDL CHOLESTEROL 66 mg/dL; LDL CHOLESTEROL,CALCULATED 64 mg/dL; POTASSIUM 4.4 mmol/L (3.5-5.0); SODIUM 137 mmol/L (135-145); TRIGLYCERIDES 81 mg/dL; VLDL CHOLESTEROL 16 mg/dL
== END 2022-01-09 10:11 | disposition home or self-care (01) ==
LOC: LAB 10:10
PROVIDERS: ATTEND Internal Medicine Cardiovascular Disease
DX: E78.5 Hyperlipidemia, unspecified (principal); I50.22 Chronic systolic (congestive) heart failure
CPT/HCPCS: 36415; 80048; 80061; 83721; 85025

== ENCOUNTER 2023-01-23 10:04 | Outpatient (CLI) | payer MEDICARE, OTHER ==
[2023-01-23 10:17] LABS: BASOPHILS # (AUTO) 0.1 10^3/uL (0.0-0.1); BASOPHILS % (AUTO) 0.8 %; EOSINOPHILS # (AUTO) 0.2 10^3/uL (0.0-0.7); EOSINOPHILS % (AUTO) 2.3 %; HCT - HEMATOCRIT 37.8 % (37.0-47.0); HGB - HEMOGLOBIN 12.1 g/dL (12.0-16.0); LYMPHOCYTES # (AUTO) 1.8 10^3/uL (1.5-3.5); LYMPHOCYTES % (AUTO) 25.2 %; MEAN CORPUSCULAR HEMOGLOBIN 31.1 pg (27.0-31.0); MEAN CORPUSCULAR VOLUME 97.2 fL (81.0-99.0); MEAN PLATELET VOLUME 10.2 fL (7.9-10.8); NEUTROPHILS # (AUTO) 4.1 10^3/uL (1.5-6.6); NEUTROPHILS % (AUTO) 57.4 %; PLT - PLATELET COUNT 295 10^3/uL (130-450); RED BLOOD COUNT 3.89 10^6/uL (4.20-5.40); RED CELL DISTRIBUTION WIDTH 14.3 % (12.0-15.0); WHITE BLOOD COUNT 7.1 x10^3/uL (4.8-10.8)
[2023-01-23 10:36] LABS: BUN - BLOOD UREA NITROGEN 15 mg/dL (6-20); CALCIUM 9.3 mg/dL (8.5-10.3); CARBON DIOXIDE - CO2 25 mmol/L (21-32); CHLORIDE 105 mmol/L (101-111); CHOL/HDL RATIO 2.2 (<4.4); CHOLESTEROL 142 mg/dL; CREATININE 0.8 mg/dL (0.4-1.0); GFR - MDRD 68 (>89); GLUCOSE 101 mg/dL (70-100); HDL CHOLESTEROL 65 mg/dL; LDL CHOLESTEROL,CALCULATED 63 mg/dL; POTASSIUM 4.5 mmol/L (3.5-5.0); SODIUM 139 mmol/L (135-145); TRIGLYCERIDES 70 mg/dL; VLDL CHOLESTEROL 14 mg/dL
== END 2023-01-23 10:05 | disposition home or self-care (01) ==
LOC: LAB 10:04
PROVIDERS: ATTEND Internal Medicine Cardiovascular Disease
DX: I25.10 Atherosclerotic heart disease of native coronary artery without angina pectoris (principal); E78.5 Hyperlipidemia, unspecified
CPT/HCPCS: 36415; 80048; 80061; 83721; 85025

== ENCOUNTER 2024-05-16 09:53 | Outpatient (CLI) | payer MEDICARE, OTHER | END 2024-05-16 23:59 | disposition EMS.NT | LOC: EMS 09:53 | DX: R53.1 Weakness (principal); R42 Dizziness and giddiness ==

== ENCOUNTER 2024-05-16 10:24 | Inpatient (IN) | payer MEDICARE, OTHER ==
[2024-05-16 11:16] LABS: BASOPHILS % (AUTO) 0.4 %; EOSINOPHILS # (AUTO) 0.1 10^3/uL (0.0-0.7); EOSINOPHILS % (AUTO) 1.1 %; LYMPHOCYTES # (AUTO) 1.4 10^3/uL (1.5-3.5); LYMPHOCYTES % (AUTO) 18.2 %; MEAN CORPUSCULAR HEMOGLOBIN 20.3 pg (27.0-31.0); MEAN CORPUSCULAR HGB CONC 26.8 g/dL (32.0-36.0); MEAN CORPUSCULAR VOLUME 75.9 fL (81.0-99.0); MEAN PLATELET VOLUME 9.3 fL (7.9-10.8); MONOCYTES # (AUTO) 0.9 10^3/uL (0.0-1.0); MONOCYTES % (AUTO) 12.5 %; NEUTROPHILS # (AUTO) 5.1 10^3/uL (1.5-6.6); NEUTROPHILS % (AUTO) 67.5 %; PLT - PLATELET COUNT 433 10^3/uL (130-450); RED BLOOD COUNT 1.87 10^6/uL (4.20-5.40); RED CELL DISTRIBUTION WIDTH 19.5 % (12.0-15.0); WHITE BLOOD COUNT 7.5 x10^3/uL (4.8-10.8)
[2024-05-16 11:22] LABS: HGB - HEMOGLOBIN 3.8 g/dL (12.0-16.0)
[2024-05-16 11:23] LABS: HCT - HEMATOCRIT 14.2 % (37.0-47.0)
--- NOTE | 2024-05-16 11:27 | XRAY Report ---
PROCEDURE: Chest 1V INDICATIONS: Chest pain TECHNIQUE: One view of the chest was acquired. COMPARISON: 11/20/2019. FINDINGS: Surgical changes and devices: None. Lungs and pleura: No pleural effusions or pneumothorax. Lungs are clear. Mediastinum: Mediastinal contours appear normal. Heart size is enlarged. Bones and chest wall: No suspicious bony lesions. Overlying soft tissues appear unremarkable. IMPRESSION: No acute cardiopulmonary process. Reviewed by: Homero Isidro MD on 05/16/2024 11:26 AM PDT Approved by: Homero Isidro MD on 05/16/2024 11:26 AM PDT Station ID: [id number]
[2024-05-16 11:28] LABS: ALBUMIN 3.4 g/dL (3.2-5.5); ALBUMIN/GLOBULIN RATIO 1.4 (1.0-2.2); BILIRUBIN,TOTAL 0.4 mg/dL (0.2-1.0); CALCIUM 8.7 mg/dL (8.5-10.3); TOTAL PROTEIN 5.8 g/dL (6.4-8.9)
--- NOTE | 2024-05-16 11:42 | ED Physician Documentation ---
History of Present Illness - Stated complaint Stated Complaint: WEAK,FAINT,LOW BP READINGS - Chief complaint Chief Complaint: General - History obtained from History obtained from: Patient - Additonal information Additional information: This is an 88-year-old woman with history of coronary disease, OR 4 years ago with stent in place on Plavix. For the last 2 weeks or so she has been feeling generally weak and dizzy without any other specific symptoms such as chest pain or trouble breathing. Her chronic radiologist got involved because of the low blood pressures at home and her losartan dose was decreased over the last few days. This has not helped. She has not noted any dark or tarry stools. She also takes Aleve chronically for back pain related to scoliosis. No history of GI bleeding. PD PAST MEDICAL HISTORY - Past Medical History Past Medical History: Yes Cardiovascular: Congestive heart failure, Hypertension Respiratory: Shortness of breath Neuro: TIA Endocrine/Autoimmune: None GI: GERD TENTERING MACHINE FEEDER: None Musculoskeletal: Osteoarthritis - Past Surgical History Past Surgical History: Yes General: Appendectomy Ortho: Knee replacement /TENTERING MACHINE FEEDER: section - Present Medications Home Medications: Ambulatory Orders Medication Instructions Recorded Confirmed Furosemide [Lasix] 10 mg PO DAILY 08/08/18 11/20/19 Alendronate [Fosamax] 70 mg PO OAW 11/20/19 11/20/19 Amox/Clav 875/125 [Augmentin] 1 each PO Q12H #20 tablet 11/20/19 Atorvastatin Calcium 10 mg PO DAILY PM 11/20/19 11/20/19 Clopidogrel Bisulfate [Clopidogrel] 75 mg PO DAILY 11/20/19 11/20/19 Spironolactone 25 mg PO DAILY 11/20/19 11/20/19 carvediloL [Carvedilol] 6.25 mg PO TID 11/20/19 11/20/19 - Allergies Allergies/Adverse Reactions: Allergies Allergy/AdvReac Type Severity Reaction Status Date / Time No Known Drug Allergies Allergy Verified 05/16/24 10:40 - Social History Does the pt smoke?: No Smoking Status: Never smoker Does the pt drink ETOH?: Yes Does the pt have substance abuse?: No - Immunizations Immunizations are current?: No Immunizations: TDAP >10years/unknown - POLST Patient has POLST: No PD ED PE NORMAL - Vitals Vital signs reviewed: Yes - General General: Alert and oriented X 3, Other (Pale) - HEENT HEENT: PERRL, EOMI - Neck Neck: Supple, no meningeal sign, No bony TTP - Cardiac Cardiac: RRR, No murmur - Respiratory Respiratory: No respiratory distress, Clear bilaterally - Abdomen Abdomen: Normal bowel sounds, Soft, Non tender - Rectal Rectal: Other (Scant but dark stool in the vault guaiac positive.) - Back Back: No CVA TTP, No spinal TTP - Derm Derm: Normal color, Warm and dry - Extremities Extremities: No edema, No calf tenderness / cord - Neuro Neuro: Alert and oriented X 3, No motor deficit, No sensory deficit, Normal speech Eye Opening: Spontaneous Motor: Obeys Commands Verbal: Oriented GCS Score: 15 - Psych Psych: Normal mood, Normal affect Results - Vitals Vitals: Vital Signs - 24 hr 05/16/24 10:36 Temperature 36.6 C Heart Rate 90 Respiratory 20 Rate Blood Pressure 102/50 L O2 Saturation 86 L Oxygen O2 Source Room air - EKG (time done) 1152 EKG releavant findings:: EKG personally interpreted by author of this note. Relevant findings are: Rate: Rate (enter#) (85) Rhythm: NSR [place]: Normal Intervals: Normal [place] QRS: Normal Ischemia: Non specific changes. No: ST elevation c/w ischemia, ST depression - Labs Labs: Microbiology 05/16/24 11:40 Occult Blood - Final Stool Laboratory Tests 05/16/24 05/16/24 05/16/24 11:09 11:09 11:09 WBC 7.5 RBC 1.87 L Hgb 3.8 L* Hct 14.2 L* MCV 75.9 L MCH 20.3 L MCHC 26.8 L RDW 19.5 H Plt Count 433 MPV 9.3 Neut # (Auto) 5.1 Lymph # (Auto) 1.4 L [place] # (Auto) 0.9 Eos # (Auto) 0.1 Baso # (Auto) 0.0 Absolute Nucleated RBC 0.00 Nucleated RBC % 0.0 Sodium 140 Potassium 4.0 Chloride 110 Carbon Dioxide 25 Anion Gap 5.0 L BUN 41 H Creatinine 1.0 Estimated GFR (MDRD) 53 L Glucose 118 H Calcium 8.7 Magnesium 1.7 Iron TIBC % Saturation Transferrin Total Bilirubin 0.4 AST 11 ALT 7 L Alkaline Phosphatase 42 Troponin I High Sens 10.4 Total Protein 5.8 L Albumin 3.4 Globulin 2.4 Albumin/Globulin Ratio 1.4 Lipase 13 Vitamin B12 05/16/24 11:09 WBC RBC Hgb Hct MCV MCH MCHC RDW Plt Count MPV Neut # (Auto) Lymph # (Auto) [place] # (Auto) Eos # (Auto) Baso # (Auto) Absolute Nucleated RBC Nucleated RBC % Sodium Potassium Chloride Carbon Dioxide Anion Gap BUN Creatinine Estimated GFR (MDRD) Glucose Calcium Magnesium Iron 14 L TIBC 393 % Saturation 4 L Transferrin 281 Total Bilirubin AST ALT Alkaline Phosphatase Troponin I High Sens Total Protein Albumin Globulin Albumin/Globulin Ratio Lipase Vitamin B12 170 L PD Medical Decision Making - ED course ED course: She presents with generalized weak and dizziness and is found to be profoundly anemic which is new. Previous hemoglobins in the 12 range. She is guaiac p ositive. Blood was ordered as well as IV Protonix. I consulted Dr. Bowers, our surgeon at 11:40 AM who will consult and our hospitalist at 11:45 AM. She had an O2 saturation of 86 in triage. This was never corroborated while on the monitor in the emergency department with sats in the high 90s. Departure - Departure Disposition: [facility] DC/Xfer Clinical Impression: GI bleed Qualifiers: GI bleed type/associated pathology: melena Qualified Code(s): K92.1 - Melena Profound anemia Qualifiers: Anemia type: unspecified type Qualified Code(s): D64.9 - Anemia, unspecified Condition: Serious Forms: PCP List
[2024-05-16 12:03] LABS: % IRON SATURATION 4 % (20-50); IRON 14 ug/dL (50-212); TOTAL IRON BINDING CAPACITY 393 ug/dL (250-450); TRANSFERRIN 281 mg/dL (203-362)
[2024-05-16 12:09] LABS: TROPONIN I HIGH SENSITIVITY 10.4 ng/L (2.3-14.8)
[2024-05-16] MEDS: PANTOPRAZOLE 40 MG VIAL IVP STA (12:16)
[2024-05-16] MEDS ORDERED: ACETAMINOPHEN 325 MG TABLET PO PRN (13:00)
[2024-05-16] MEDS ORDERED: ONDANSETRON ODT 4 MG TABLET TL PRN (13:00)
[2024-05-16] MEDS ORDERED: HYDROcod/ACETAM 5/325 MG TABLET PO PRN (13:00)
--- NOTE | 2024-05-16 13:06 | HISTORY & PHYSICAL EXAMINATION ---
Chief Complaint - Chief Complaint Chief Complaint: Weakness History of Present Illness - History of Present Illness HPI Comment/Other: Patient is an 88-year-old female the past medical history of CAD s/p PCI 4 years ago, heart failure with reduced ejection fraction on last recorded TTE, hyperlipidemia, GERD who presented to the ED due to complaints of weakness. Upon initial CBC she was noted to have a hemoglobin of 3.8 and 3 to packed red blood cells were ordered. She did not have any obvious signs of bleeding however she did have a positive FOBT. Prior to arrival, patient endorsed that she had had 2 weeks of weakness with low blood pressures. Her street contractor at [place], Dr. Hannon, had reduced her losartan which did not improve her symptoms. During my evaluation, patient denies any chest pain or shortness of breath. Her primary complaint was weakness. Her blood pressure and vital signs were stable. Case was discussed with general surgery who had no imminent plans to perform any endoscopic evaluation given that she was not actively bleeding. Patient states she has never had a colonoscopy or EGD in the past. History - Past Medical History Cardiovascular: reports: Congestive heart failure, Hypertension Respiratory: reports: Shortness of breath Neuro: reports: TIA Endocrine/Autoimmune: reports: None GI: reports: GERD EDITING INTERNSHIP: reports: None Musculoskeletal: reports: Osteoarthritis MRSA Hx?: No - Past Surgical History General: reports: Appendectomy Ortho: reports: Knee replacement /EDITING INTERNSHIP: reports: section - POLST Patient has POLST: No Meds/Allgy - Home Medications Home Medications: Ambulatory Orders Medication Instructions Recorded Confirmed Furosemide [Lasix] 10 mg PO DAILY 08/08/18 11/20/19 Alendronate [Fosamax] 70 mg PO OAW 11/20/19 11/20/19 Amox/Clav 875/125 [Augmentin] 1 each PO Q12H #20 tablet 11/20/19 Atorvastatin Calcium 10 mg PO DAILY PM 11/20/19 11/20/19 Clopidogrel Bisulfate [Clopidogrel] 75 mg PO DAILY 11/20/19 11/20/19 Spironolactone 25 mg PO DAILY 11/20/19 11/20/19 carvediloL [Carvedilol] 6.25 mg PO TID 11/20/19 11/20/19 - Allergies Allergies/Adverse Reactions: Allergies Allergy/AdvReac Type Severity Reaction Status Date / Time No Known Drug Allergies Allergy Verified 05/16/24 10:40 Review of Systems - Constitutional Constitutional: reports: Fatigue - Cardiovascular Cariovascular: denies: Palpitations, Chest pain, Edema - Gastrointestinal Gastrointestinal: denies: Abdominal pain, Abdominal distention, Constipation, Black stools, Bloody stools - All Other Systems All Other Systems: reports: Reviewed and negative Exam - Vital Signs Vital Signs: Vital Signs x48h Temp Pulse Resp BP Pulse Ox 05/16/24 10:36 36.6 C 90 20 102/50 L 86 L - Physical Exam General Appearance: positive: No acute distress, Alert Respiratory: positive: Chest non-tender, No respiratory distress, Breath sounds nml Cardiovascular: positive: Regular rate & rhythm, No murmur, No gallop Abdomen: positive: Non-tender, No organomegaly, Nml bowel sounds, No distention Conclusion/Plan - Problem List (1) GI bleed Conclusion/Plan: --Profound anemia due to suspected GI bleeding. --Started on IV protonix 40 mg BID. --We will hold her NSAIDS. --She remains on plavix due to her prior cardiac stents. Her Yard Truck Driver is Dr. Peter in [place]. --3 units of pRBC ordered. --Case discussed with general surgery. No imminent plan to perform scope. Qualifiers: GI bleed type/associated pathology: melena Qualified Code(s): K92.1 - Melena (2) CAD (coronary artery disease) Conclusion/Plan: --Prior history of PCI 4 years prior. Currently on plavix and statin. Continue these medications. (3) Congestive heart failure Conclusion/Plan: --Patient reports she has an updated TTE but does not know the result. - Lab Results Fish Bones: 05/16/24 11:09 05/16/24 11:09
[2024-05-16] MEDS: SODIUM CHLORIDE 0.9% 1,000 ML IV STA (13:48)
[2024-05-16 14:22] LABS: B. PARAPERTUSSIS- RESP PCR PAN NOT DETECTED; B. PERTUSSIS- RESP PCR PANEL NOT DETECTED; C. PNEUMONIAE- RESP PCR PANEL NOT DETECTED; CORONAVIRUS 229E-RESP PCR NOT DETECTED; CORONAVIRUS HKU1-RESP PCR NOT DETECTED; CORONAVIRUS NL63-RESP PCR NOT DETECTED; CORONAVIRUS OC43-RESP PCR NOT DETECTED; HUMAN METAPNEUMOVIRUS NOT DETECTED; INFLUENZA A- RESP PCR PANEL NOT DETECTED; INFLUENZA B - RESP PCR PANEL NOT DETECTED; M. PNEUMONIAE- RESP PCR PANEL NOT DETECTED; PARAINFLUENZA VIRUS 1 NOT DETECTED; PARAINFLUENZA VIRUS 2 NOT DETECTED; PARAINFLUENZA VIRUS 3 NOT DETECTED; PARAINFLUENZA VIRUS 4 NOT DETECTED; RHINOVIRUS/ENTEROVIRUS NOT DETECTED; RSV- RESP PCR PANEL NOT DETECTED; SARS-CoV-2 -RESP PCR PANEL NOT DETECTED
--- NOTE | 2024-05-16 15:09 | CONSULTATION NOTE ---
Referring Provider Consult Date: 05/16/24 Chief Complaint - Chief Complaint Chief Complaint: weakness History of Present Illness - History Obtained From Records Reviewed: yes History obtained from: pt Exam Limitations: none - History of Present Illness HPI Comment/Other: progressive weakness over a couple weeks. taking a lot of aleve for back pain denies any lower gi and upper gi symptoms. no pain on swallowing, trouble swallowing, wt loss, etc no evidence of blood loss, ie no dark or bloody stool. normal bowel habits. work up in ED very anemic History - Past Medical History Cardiovascular: reports: Congestive heart failure, Hypertension Respiratory: reports: Shortness of breath Neuro: reports: TIA Endocrine/Autoimmune: reports: None GI: reports: GERD CONSERVATION EDUCATOR: reports: None Musculoskeletal: reports: Osteoarthritis MRSA Hx?: No - Past Surgical History General: reports: Appendectomy Ortho: reports: Knee replacement /CONSERVATION EDUCATOR: reports: section - POLST Patient has POLST: No Meds/Allgy - Home Medications Home Medications: Ambulatory Orders Medication Instructions Recorded Confirmed Furosemide [Lasix] 10 mg PO DAILY 08/08/18 11/20/19 Alendronate [Fosamax] 70 mg PO OAW 11/20/19 11/20/19 Amox/Clav 875/125 [Augmentin] 1 each PO Q12H #20 tablet 11/20/19 Atorvastatin Calcium 10 mg PO DAILY PM 11/20/19 11/20/19 Clopidogrel Bisulfate [Clopidogrel] 75 mg PO DAILY 11/20/19 11/20/19 Spironolactone 25 mg PO DAILY 11/20/19 11/20/19 carvediloL [Carvedilol] 6.25 mg PO TID 11/20/19 11/20/19 - Allergies Allergies/Adverse Reactions: Allergies Allergy/AdvReac Type Severity Reaction Status Date / Time No Known Drug Allergies Allergy Verified 05/16/24 10:40 Review of Systems - Other Findings Other Findings: 10 pt ros as above otherwise unremarkable Exam - Vital Signs Vital Signs: Vital Signs x48h Temp Pulse Pulse Resp BP BP Pulse Ox 05/16/24 14:26 36.5 C 96 16 137/63 H 95 05/16/24 14:00 88 23 116/62 96 05/16/24 13:36 37.1 C 88 18 120/59 L 98 05/16/24 13:20 37.1 C 92 18 112/55 L 97 05/16/24 10:36 36.6 C 90 20 102/50 L 86 L - Physical Exam General Appearance: positive: No acute distress, Alert Eyes Bilateral: positive: PERRL, EOMI, No scleral icterus ENT: positive: No signs of dehydration Neck: positive: No JVD Respiratory: positive: No respiratory distress Abdomen: positive: Non-tender, No distention Neurologic/Psychiatric: positive: Oriented x3 Conclusion/Plan - Problem List (1) Profound anemia Conclusion/Plan: no active bleeding or signs/ symptoms of significant gi pathology. agree with current care. endoscopy will unlikely currency exchange specialist and hospital course. In addition she does not want endoscopy. Qualifiers: Anemia type: unspecified type Qualified Code(s): D64.9 - Anemia, unspecified - Lab Results Fish Bones: 05/16/24 11:09 05/16/24 11:09
[2024-05-16] MEDS: SODIUM CHLORIDE FLUSH 0.9% 10 ML SYRINGE IVP SCH (16:16)
[2024-05-16] MEDS: ONDANSETRON 4 MG/2 ML VIAL IVP PRN (17:13)
[2024-05-16] MEDS: GABAPENTIN 300 MG CAPSULE PO ONE (19:19)
[2024-05-17 01:15] LABS: HCT - HEMATOCRIT 24.7 % (37.0-47.0); HGB - HEMOGLOBIN 7.3 g/dL (12.0-16.0)
[2024-05-17] MEDS ORDERED: SODIUM CHLORIDE 0.9% 500 ML IV ONE (01:22)
[2024-05-17 05:52] LABS: BASOPHILS # (AUTO) 0.1 10^3/uL (0.0-0.1); BASOPHILS % (AUTO) 0.6 %; EOSINOPHILS # (AUTO) 0.3 10^3/uL (0.0-0.7); EOSINOPHILS % (AUTO) 2.9 %; HCT - HEMATOCRIT 29.4 % (37.0-47.0); HGB - HEMOGLOBIN 9.3 g/dL (12.0-16.0); LYMPHOCYTES # (AUTO) 1.9 10^3/uL (1.5-3.5); LYMPHOCYTES % (AUTO) 20.4 %; MEAN CORPUSCULAR HEMOGLOBIN 25.2 pg (27.0-31.0); MEAN CORPUSCULAR HGB CONC 31.6 g/dL (32.0-36.0); MEAN CORPUSCULAR VOLUME 79.7 fL (81.0-99.0); MEAN PLATELET VOLUME 9.1 fL (7.9-10.8); MONOCYTES # (AUTO) 1.1 10^3/uL (0.0-1.0); MONOCYTES % (AUTO) 11.8 %; NEUTROPHILS # (AUTO) 5.9 10^3/uL (1.5-6.6); PLT - PLATELET COUNT 360 10^3/uL (130-450); RED BLOOD COUNT 3.69 10^6/uL (4.20-5.40); RED CELL DISTRIBUTION WIDTH 18.1 % (12.0-15.0); WHITE BLOOD COUNT 9.3 x10^3/uL (4.8-10.8)
[2024-05-17 06:05] LABS: CALCIUM 8.8 mg/dL (8.5-10.3); CREATININE 0.9 mg/dL (0.6-1.3); POTASSIUM 3.5 mmol/L (3.5-4.5)
[2024-05-17] MEDS: FERROUS GLUCONATE 324 MG TABLET PO SCH (08:01)
[2024-05-17] MEDS: CYANOCOBALAMIN 1,000 MCG/ML VIAL IM ONE (08:02)
--- NOTE | 2024-05-17 12:31 | PROVIDER PROGRESS NOTE ---
Assessment/Plan - Problem List (1) GI bleed Qualifiers: GI bleed type/associated pathology: melena Qualified Code(s): K92.1 - Melena Assessment/Plan: (1) GI bleed Conclusion/Plan: --Profound anemia due to suspected GI bleeding. --Started on IV protonix 40 mg BID. --We will hold her NSAIDS. --She remains on plavix due to her prior cardiac stents. Her Section Beamer is Dr. Peter in [place]. --4 units given. Hemoglobin now stable above 8. --Case discussed with general surgery. No imminent plan to perform scope. Qualifiers: GI bleed type/associated pathology: melena Qualified Code(s): K92.1 - Melena (2) CAD (coronary artery disease) Conclusion/Plan: --Prior history of PCI 4 years prior. Currently on plavix and statin. Continue these medications. (3) Congestive heart failure Conclusion/Plan: --Patient reports she has an updated TTE but does not know the result. Dispo: Anticipate discharge tomorrow pending hemoglobin. - Current Meds Current Meds: Current Medications Generic Name Dose Route Start Last Admin Trade Name Freq PRN Reason Stop Dose Admin Ferrous Gluconate 324 mg 05/17/24 08:00 05/17/24 08:01 Ferrous Gluconate 324 Mg Tablet PO 324 mg DAILYWM EMELIA Administration Ondansetron HCl 4 mg 05/16/24 13:00 05/16/24 17:13 Ondansetron 4 Mg/2 Ml Vial IVP 4 mg Q6HR PRN Administration Nausea / Vomiting Sodium Chloride 10 ml 05/16/24 17:00 05/17/24 04:41 Sodium Chloride Flush 0.9% 10 Ml Syringe IVP 10 ml 0100,0900,1700 EMELIA Administration - Lab Result Fish Bone Diagrams: 05/17/24 05:40 05/17/24 05:40 - Additional Planning My Orders: My Active Orders 05/16/24 13:00 Activity Orders [RC] Q2HR IO [RC] IOSHIFT Initiate Bowel Care Protocol [RC] .protocol Initiate Line Care Protocol [RC] QSHIFT Initiate Personal Care Protoco [RC] .protocol Oxygen Therapy [RC] .PRN Telemetry (24 Hour) [RC] Q4HR Vital Signs [RC] Q4HR Acetaminophen [Tylenol] 650 mg PO Q4HR PRN HYDROcod/ACETAM 5/325 [[place] 5/325] 1 tab PO Q4HR PRN Ondansetron Inj [Zofran Inj] 4 mg IVP Q6HR PRN Ondansetron Odt [Zofran Odt] 4 mg TL Q6HR PRN Sodium Chloride Flush 0.9% [Normal Saline Flush 0.9%] 10 ml IVP PRN PRN Code Status [OTHERS] Routine Condition of Patient [OTHERS] Routine DVT Prophylaxis [OTHERS] Routine 05/16/24 13:01 SCDs [RC] QSHIFT 05/16/24 Dinner Cardiac Diet [DIET] 05/16/24 17:00 Sodium Chloride Flush 0.9% [Normal Saline Flush 0.9%] 10 ml IVP 0100,0900,1700 05/16/24 22:58 Transfuse RBCs Leukoreduced [RC] .ONCE 05/17/24 08:00 Ferrous Gluconate [Fergon] 324 mg PO DAILYWM 05/17/24 21:00 Pantoprazole [Protonix] 40 mg IVP BID 05/18/24 05:00 BMP - BASIC METABOLIC PANEL [CHEM] DAILYLAB CBC [CBC - COMP BLD CT W/AUTO DIFF] [HEME] DAILYLAB 05/19/24 05:00 BMP - BASIC METABOLIC PANEL [CHEM] DAILYLAB CBC [CBC - COMP BLD CT W/AUTO DIFF] [HEME] DAILYLAB 05/20/24 05:00 BMP - BASIC METABOLIC PANEL [CHEM] DAILYLAB CBC [CBC - COMP BLD CT W/AUTO DIFF] [HEME] DAILYLAB 05/21/24 05:00 BMP - BASIC METABOLIC PANEL [CHEM] DAILYLAB CBC [CBC - COMP BLD CT W/AUTO DIFF] [HEME] DAILYLAB Subjective - Subjective Patient Reports: Feeling Better, Resting Comfortably, No Complaints Objective Vital Signs: Vital Signs - 24 hr 05/16/24 05/16/24 05/16/24 13:20 13:36 14:00 Temperature 37.1 C 37.1 C Heart Rate 88 Heart Rate [ Brachial] Heart Rate [ 92 88 Radial] Respiratory 18 18 23 Rate Blood Pressure 116/62 Blood Pressure 112/55 L 120/59 L [Left Brachial artery] Blood Pressure [right brachial artery] O2 Saturation 97 98 96 05/16/24 05/16/24 05/16/24 14:26 15:28 16:46 Temperature 36.5 C 36.6 C 36.7 C Heart Rate Heart Rate [ Brachial] Heart Rate [ 96 83 90 Radial] Respiratory 16 18 16 Rate Blood Pressure Blood Pressure 137/63 H 123/75 146/64 H [Left Brachial artery] Blood Pressure [right brachial artery] O2 Saturation 95 97 95 05/16/24 05/16/24 05/16/24 17:01 17:17 20:12 Temperature 36.6 C 36.7 C 36.8 C Heart Rate Heart Rate [ Brachial] Heart Rate [ 89 89 87 Radial] Respiratory 16 16 18 Rate Blood Pressure Blood Pressure 146/64 H 137/68 H 130/64 [Left Brachial artery] Blood Pressure [right brachial artery] O2 Saturation 96 95 95 05/16/24 05/16/24 05/16/24 20:21 20:37 23:29 Temperature 36.7 C 36.9 C 36.6 C Heart Rate Heart Rate [ 90 Brachial] Heart Rate [ 88 87 Radial] Respiratory 18 16 18 Rate Blood Pressure Blood Pressure 130/64 136/62 H 111/58 L [Left Brachial artery] Blood Pressure [right brachial artery] O2 Saturation 95 95 95 05/16/24 05/16/24 05/17/24 23:50 23:52 02:00 Temperature 36.6 C 36.6 C 36.3 C L Heart Rate Heart Rate [ 78 74 88 Brachial] Heart Rate [ Radial] Respiratory 18 18 16 Rate Blood Pressure Blood Pressure 111/58 L 111/58 L 96/42 L [Left Brachial artery] Blood Pressure [right brachial artery] O2 Saturation 95 95 93 05/17/24 05/17/24 05/17/24 02:17 04:15 04:36 Temperature 36.5 C 36.6 C 36.5 C Heart Rate Heart Rate [ 88 83 76 Brachial] Heart Rate [ Radial] Respiratory 16 20 16 Rate Blood Pressure Blood Pressure 118/61 82/62 L [Left Brachial artery] Blood Pressure 121/66 [right brachial artery] O2 Saturation 92 92 93 05/17/24 05/17/24 04:37 08:08 Temperature 36.5 C 36.9 C Heart Rate Heart Rate [ 76 81 Brachial] Heart Rate [ Radial] Respiratory 16 16 Rate Blood Pressure Blood Pressure [Left Brachial artery] Blood Pressure 121/66 124/58 L [right brachial artery] O2 Saturation 93 93 Oxygen O2 Source Room air I&O (Last 24 Hrs): Intake and Output Totals x24h 05/15/24 05/16/24 05/17/24 23:59 23:59 23:59 Intake Total 825 450 Output Total 600 400 Balance 225 50 General: Alert, Oriented x3, Cooperative, No acute distress Neuro: Alert, CN 2-12 Grossly Intact, Oriented Times 3 Cardiovascular: Regular rate, Normal S1, Normal S2, No murmurs Respiratory: Chest non-tender, No respiratory distress, Breath sounds nml Abdomen: Normal bowel sounds, Soft, No tenderness, No hepatospenomegaly, No masses - Results Results: Laboratory Results WBC 9.3 x10^3/uL (4.8-10.8) 05/17/24 05:40 RBC 3.69 10^6/uL (4.20-5.40) L 05/17/24 05:40 Hgb 9.3 g/dL (12.0-16.0) L 05/17/24 05:40 Hct 29.4 % (37.0-47.0) L 05/17/24 05:40 MCV 79.7 fL (81.0-99.0) L 05/17/24 05:40 MCH 25.2 pg (27.0-31.0) L 05/17/24 05:40 MCHC 31.6 g/dL (32.0-36.0) L 05/17/24 05:40 RDW 18.1 % (12.0-15.0) H 05/17/24 05:40 Plt Count 360 10^3/uL (130-450) 05/17/24 05:40 MPV 9.1 fL (7.9-10.8) 05/17/24 05:40 Neut # (Auto) 5.9 10^3/uL (1.5-6.6) 05/17/24 05:40 Lymph # (Auto) 1.9 10^3/uL (1.5-3.5) 05/17/24 05:40 [place] # (Auto) 1.1 10^3/uL (0.0-1.0) H 05/17/24 05:40 Eos # (Auto) 0.3 10^3/uL (0.0-0.7) 05/17/24 05:40 Baso # (Auto) 0.1 10^3/uL (0.0-0.1) 05/17/24 05:40 Absolute Nucleated RBC 0.00 x10^3/uL 05/17/24 05:40 Nucleated RBC % 0.0 /100WBC 05/17/24 05:40 Sodium 143 mmol/L (135-145) 05/17/24 05:40 Potassium 3.5 mmol/L (3.5-4.5) 05/17/24 05:40 Chloride 113 mmol/L (101-111) H 05/17/24 05:40 Carbon Dioxide 26 mmol/L (21-32) 05/17/24 05:40 Anion Gap 4.0 (6-13) L 05/17/24 05:40 BUN 23 mg/dL (6-20) H 05/17/24 05:40 Creatinine 0.9 mg/dL (0.6-1.3) 05/17/24 05:40 Estimated GFR (MDRD) 59 (>89) L 05/17/24 05:40 Glucose 116 mg/dL (74-104) H 05/17/24 05:40 Calcium 8.8 mg/dL (8.5-10.3) 05/17/24 05:40 Magnesium 1.7 mg/dL (1.7-2.3) 05/16/24 11:09 Iron 14 ug/dL (50-212) L 05/16/24 11:09 TIBC 393 ug/dL (250-450) 05/16/24 11:09 % Saturation 4 % (20-50) L 05/16/24 11:09 Transferrin 281 mg/dL (203-362) 05/16/24 11:09 Total Bilirubin 0.4 mg/dL (0.2-1.0) 05/16/24 11:09 AST 11 IU/L (10-42) 05/16/24 11:09 ALT 7 IU/L (10-60) L 05/16/24 11:09 Alkaline Phosphatase 42 IU/L (42-121) 05/16/24 11:09 Troponin I High Sens 10.4 ng/L (2.3-14.8) 05/16/24 11:09 Total Protein 5.8 g/dL (6.4-8.9) L 05/16/24 11:09 Albumin 3.4 g/dL (3.2-5.5) 05/16/24 11:09 Globulin 2.4 g/dL (2.1-4.2) 05/16/24 11:09 Albumin/Globulin Ratio 1.4 (1.0-2.2) 05/16/24 11:09 Lipase 13 U/L (11-82) 05/16/24 11:09 Vitamin B12 170 pg/mL (180-914) L 05/16/24 11:09 Nasal Adenovirus (PCR) NOT DETECTED 05/16/24 12:55 Nasal B. parapertussis DNA (PCR) NOT DETECTED 05/16/24 12:55 Nasal Coronavir 229E PCR NOT DETECTED 05/16/24 12:55 Nasal Coronavir HKU1 PCR NOT DETECTED 05/16/24 12:55 Nasal Coronavir NL63 PCR NOT DETECTED 05/16/24 12:55 Nasal Coronavir OC43 PCR NOT DETECTED 05/16/24 12:55 Nasal Enterovir/Rhinovir PCR NOT DETECTED 05/16/24 12:55 Nasal Influenza B PCR NOT DETECTED 05/16/24 12:55 Nasal Influenza A PCR NOT DETECTED 05/16/24 12:55 Nasal Parainfluen 1 PCR NOT DETECTED 05/16/24 12:55 Nasal Parainfluen 2 PCR NOT DETECTED 05/16/24 12:55 Nasal Parainfluen 3 PCR NOT DETECTED 05/16/24 12:55 Nasal Parainfluen 4 PCR NOT DETECTED 05/16/24 12:55 Nasal RSV (PCR) NOT DETECTED 05/16/24 12:55 Nasal B.pertussis DNA PCR NOT DETECTED 05/16/24 12:55 Nasal C.pneumoniae (PCR) NOT DETECTED 05/16/24 12:55 Manohar Human Metapneumo PCR NOT DETECTED 05/16/24 12:55 Nasal M.pneumoniae (PCR) NOT DETECTED 05/16/24 12:55 Nasal SARS-CoV-2 (PCR) NOT DETECTED 05/16/24 12:55 Blood Type O NEGATIVE 05/16/24 11:32 Blood Type Recheck O NEGATIVE 05/16/24 11:09 Antibody Screen NEGATIVE 05/16/24 11:32 Crossmatch IS Only See Detail 05/16/24 11:32
--- NOTE | 2024-05-17 13:24 | PHARMACY PROGRESS NOTE ---
- Best Possible Medication History Admit Date and Time: 05/16/24 1300 Processed by: Pharmacy Medication History completed: Yes Patient Interview: Completed Secondary Source(s): Spouse/Significant other, Insurance records As the person ultimately responsible for medication therapy, providers are able to order a medication from an existing home medication list in [facility] via the "Reconcile Routine" prior to Confirmation of that medication by telecommunications support. Such practice is discouraged except when the physician, in their clinical judgment, deems that a medical need exists for a medication without regard to previous use.
[2024-05-17] MEDS: PANTOPRAZOLE 40 MG VIAL IVP SCH (20:08)
[2024-05-17] MEDS: GABAPENTIN 100 MG CAPSULE PO PRN (20:08)
[2024-05-17] MEDS: SODIUM CHLORIDE FLUSH 0.9% 10 ML SYRINGE IVP PRN (20:08)
[2024-05-18 05:46] LABS: BASOPHILS # (AUTO) 0.1 10^3/uL (0.0-0.1); BASOPHILS % (AUTO) 0.6 %; EOSINOPHILS # (AUTO) 0.3 10^3/uL (0.0-0.7); EOSINOPHILS % (AUTO) 3.4 %; HCT - HEMATOCRIT 28.7 % (37.0-47.0); HGB - HEMOGLOBIN 8.6 g/dL (12.0-16.0); LYMPHOCYTES # (AUTO) 1.7 10^3/uL (1.5-3.5); MEAN CORPUSCULAR HEMOGLOBIN 24.4 pg (27.0-31.0); MEAN CORPUSCULAR VOLUME 81.3 fL (81.0-99.0); MEAN PLATELET VOLUME 9.7 fL (7.9-10.8); MONOCYTES # (AUTO) 1.2 10^3/uL (0.0-1.0); MONOCYTES % (AUTO) 15.2 %; NEUTROPHILS # (AUTO) 4.9 10^3/uL (1.5-6.6); NEUTROPHILS % (AUTO) 59.4 %; PLT - PLATELET COUNT 376 10^3/uL (130-450); RED BLOOD COUNT 3.53 10^6/uL (4.20-5.40); RED CELL DISTRIBUTION WIDTH 18.3 % (12.0-15.0); WHITE BLOOD COUNT 8.2 x10^3/uL (4.8-10.8)
[2024-05-18 05:56] LABS: CALCIUM 8.9 mg/dL (8.5-10.3); CREATININE 0.8 mg/dL (0.6-1.3); POTASSIUM 3.7 mmol/L (3.5-4.5)
--- NOTE | 2024-05-18 09:12 | Discharge Plan ---
Discharge Plan Problem Reviewed?: Yes Disposition: Home, Self Care Condition: Serious Prescriptions: Ferrous Gluconate 324 mg PO DAILY #30 tablet Pantoprazole [Protonix] 40 mg PO BID #180 tablet Diet: Cardiac Activity Restrictions: Activity as Tolerated Additional Instructions or Follow Up instructions: Your spironolactone was held on discharge due to normal blood pressures. Please follow up with your International Project Engineer in regards to restarting this blood pressure medication. No Smoking: If you smoke, Please STOP! Call for help.
[2024-05-18 12:49] VITALS: BP 123/67; O2SAT 93
--- NOTE | 2024-05-18 12:51 | DISCHARGE SUMMARY ---
Discharge Summary Admit Date: 05/16/24 Discharge Date: 05/18/24 Discharging Provider: Renee Bradshaw Code Status: Attempt Resuscitation Condition at Discharge: Good Discharge Disposition: 01 Home, Self Care - HPI History of Present Illness: Patient is an 88-year-old female the past medical history of CAD s/p PCI 4 years ago, heart failure with reduced ejection fraction on last recorded TTE, hyperlipidemia, GERD who presented to the ED due to complaints of weakness. Upon initial CBC she was noted to have a hemoglobin of 3.8 and 3 to packed red blood cells were ordered. She did not have any obvious signs of bleeding however she did have a positive FOBT. Prior to arrival, patient endorsed that she had had 2 weeks of weakness with low blood pressures. Her factory focus technician at [employer], Dr. Hannon, had reduced her losartan which did not improve her symptoms. During my evaluation, patient denies any chest pain or shortness of breath. Her primary complaint was weakness. Her blood pressure and vital signs were stable. Case was discussed with general surgery who had no imminent plans to perform any endoscopic evaluation given that she was not actively bleeding. Patient states she has never had a colonoscopy or EGD in the past. - HOSPITAL COURSE Hospital Course: 88-year-old female who presented to the ED due to complaints of weakness. Upon presentation, a CBC was performed which revealed a hemoglobin of 3.8. Patient denied any prior history of bleeding over the past several days or weeks. She was on oral Plavix for history of CAD s/p PCI. Patient was admitted and started on a blood transfusion. She was given 4 total units of hemoglobin which brought her blood count up to 9.3. General surgery was consulted and recommended against performing any endoscopic procedures. Hemoglobin was trended and on day of discharge her hemoglobin was 8.6. She was subsequently discharged on oral iron as well as Protonix 40 mg twice daily. I did recommend that she follow-up with her PCP and get a referral to gastroenterology for a bidirectional scope. I also recommended she follow-up with her factory focus technician in regards to possibly switching to oral aspirin instead of Plavix. - ALLERGIES Allergies/Adverse Reactions: Allergies Allergy/AdvReac Type Severity Reaction Status Date / Time No Known Drug Allergies Allergy Verified 05/16/24 10:40 - MEDICATIONS Home Medications: Ambulatory Orders Medication Instructions Recorded Confirmed Clopidogrel Bisulfate [Clopidogrel] 75 mg PO DAILY 11/20/19 05/17/24 carvediloL [Carvedilol] 6.25 mg PO DAILY 11/20/19 05/17/24 Ezetimibe [Zetia] 10 mg PO DAILY 05/17/24 05/17/24 Gabapentin [Neurontin] 1 cap PO TID PRN 05/17/24 05/17/24 Rosuvastatin Calcium 1 tab PO DAILY 05/17/24 05/17/24 Ferrous Gluconate 324 mg PO DAILY #30 tablet 05/18/24 Pantoprazole [Protonix] 40 mg PO BID #180 tablet 05/18/24 - PHYSICAL EXAM AT DISCHARGE General Appearance: positive: No acute distress, Alert Respiratory: positive: Chest non-tender, No respiratory distress, Breath sounds nml Cardiovascular: positive: Regular rate & rhythm, No murmur, No gallop Abdomen: positive: Non-tender, No organomegaly, Nml bowel sounds Extremities: positive: Non-tender, No pedal edema Neurologic/Psychiatric: positive: Oriented x3, CN's nml (2-12) - LABS Result Diagrams: 05/18/24 05:20 05/18/24 05:20 - FOLLOW UP Follow Up: Follow up with PCP and Cardiology. - TIME SPENT Time Spent in Discharge (Minutes): 30
== END 2024-05-18 12:55 | disposition home or self-care (01) | DRG 812 ==
LOC: ED 10:24 → MS2 13:00
PROVIDERS: ADMIT Family Medicine; ATTEND Family Medicine
PROC: 30233N1 Transfusion of Nonautologous Red Blood Cells into Peripheral Vein, Percutaneous Approach (ICD-10-PCS; principal; 2024-05-16)
DX: D62 Acute posthemorrhagic anemia (principal); D64.9 Anemia, unspecified; K92.1 Melena; I50.9 Heart failure, unspecified; I50.20 Unspecified systolic (congestive) heart failure; I25.10 Atherosclerotic heart disease of native coronary artery without angina pectoris; I11.0 Hypertensive heart disease with heart failure; I25.2 Old myocardial infarction; Z95.5 Presence of coronary angioplasty implant and graft; Z79.01 Long term (current) use of anticoagulants; E78.5 Hyperlipidemia, unspecified; K21.9 Gastro-esophageal reflux disease without esophagitis; R53.1 Weakness
CPT/HCPCS: 36415; 36430; 71045; 80048; 80053; 82272; 82607; 83540; 83690; 83735; 84466; 84484; 85014; 85018; 85025; 86850; 86900; 86901; 86920; 87633; 93005; 96374; 99285; A9270; P9016